=== PATIENT | female | born 1985 | race Caucasian/White ===

== ENCOUNTER 2016-12-21 22:27 | Emergency (ER) | payer OTHER ==
[~2016-12-21] VITALS: Ht 162.6 cm; Wt 97.5 kg
[~2016-12-21 22:27] MED LIST: AMOXICILLIN875 M1 PO; PREDNISONE20 M1 PO; PROAIR HFA8.5 GM INH
[2016-12-21 22:34] VITALS: BP 111/73
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
--- NOTE | 2016-12-21 23:59 | RADIOLOGY REPORT ---
EXAMINATION: 1. Left forearm. 2. Left wrist CLINICAL INFORMATION: Fall. COMPARISON: None TECHNIQUE: 1. Left forearm. 2 views 2. Left wrist. 4 views. FINDINGS: 1. Left forearm. No fracture. Radius and ulna are intact. 2. Left wrist. No fracture. No dislocation. Bone and joint normal. IMPRESSION: 1. Left forearm. Normal. 2. Left wrist. Normal.
[2016-12-22] MEDS ORDERED: CIPROFLOXACIN500 M2 PO (00:04)
[2016-12-22] MEDS ORDERED: PANTOPRAZOLE SO40 M1 PO (00:04)
[2016-12-22] MEDS ORDERED: TRAMADOL HCL50 M1 PO (00:04)
[2016-12-22] MEDS ORDERED: DICLOFENAC SODI75 M2 PO (00:05)
== END 2016-12-22 00:12 ==
LOC: ERH 22:27
DX: S50.12XA Contusion of left forearm, initial encounter (principal); S63.502A Unspecified sprain of left wrist, initial encounter; W10.9XXA Fall (on) (from) unspecified stairs and steps, initial encounter
CPT/HCPCS: 73090-LT; 73110-LT

== ENCOUNTER 2017-06-20 20:09 | Emergency (ER) | payer OTHER ==
[~2017-06-20] VITALS: Ht 162.6 cm; Wt 98.4 kg
[~2017-06-20 20:09] MED LIST changes: +CIPROFLOXACIN500 M2 PO; +DICLOFENAC SODI75 M2 PO; +PANTOPRAZOLE SO40 M1 PO; +TRAMADOL HCL50 M1 PO
[2017-06-20 20:31] VITALS: BP 113/76
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
--- NOTE | 2017-06-20 22:36 | CT SCAN REPORT ---
EXAMINATION: CT HEAD WITHOUT CONTRAST CT FACIAL BONES WITHOUT CONTRAST CLINICAL INFORMATION: Evaluate for mandibular fracture. Right facial pain. COMPARISON: None. TECHNIQUE: Contiguous axial imaging was performed from the skullbase to vertex without intravenous administration of contrast. Multidetector helical imaging performed through the facial bones. Please note that the inferior mental process of the mandible is not included on imaging. DLP: 1236 mGy-cm. FINDINGS: There is no evidence of acute intracranial hemorrhage or territorial infarction. No abnormal mass effect or midline shift is seen. Hand to white matter differentiation is well preserved. No extra-axial fluid collections are identified. The ventricles are normal in size. There is no abnormal attenuation within the brain parenchyma. The osseous structures and soft tissues are normal. The orbits are normal in appearance. The zygomatic arches are normal. The imaged portions of the mandible are atraumatic. The mental process is not fully included on imaging. The TMJs are normal. The mastoid air cells and visualized portions of the paranasal sinuses are well aerated. The maxillofacial soft tissues are unremarkable. IMPRESSION: No acute intracranial pathology. No visible maxillofacial fracture.
[2017-06-20] MEDS ORDERED: OXYCODONE HCL5 M2 PO (22:49)
== END 2017-06-20 22:55 ==
LOC: ERH 20:09
DX: H72.91 Unspecified perforation of tympanic membrane, right ear (principal); S06.0X0A Concussion without loss of consciousness, initial encounter; R68.84 Jaw pain; W50.1XXA Accidental kick by another person, initial encounter; Y92.9 Unspecified place or not applicable; Y93.11 Activity, swimming

== ENCOUNTER 2018-01-01 00:33 | Emergency (ER) | payer OTHER ==
[~2018-01-01] VITALS: Ht 162.6 cm; Wt 101.6 kg
[~2018-01-01 00:33] MED LIST changes: +BUTALB-ACETAMI1 EACH PO; +GABAPENTIN300 M2 PO; +LORAZEPAM0.5 M1 PO; +MECLIZINE HCL25 MG PO; +OXYCODONE HCL5 M2 PO; +SCOPOLAMINE1 EAC1 TP; +TRANSDERM-SCOP1 EACH TOP
--- NOTE | 2018-01-01 00:57 | ED CARDIAC/CP/PALPITATIONS ---
History of Present Illness General Chief Complaint: Chest Pain Stated Complaint: " I HAVE REALLY BAD PAIN AND PRESSURE IN MY CHEST" Source: patient Exam Limitations: no limitations Vital Signs & Intake/Output Vital Signs & Intake/Output Vital Signs Date Time Temp Pulse Resp B/P B/P Pulse O2 O2 Flow FiO2 Mean Ox Delivery Rate 01/01 0320 97.5 92 18 127/79 99 Room Air 01/01 0113 Room Air 01/01 0047 97.4 101 16 133/68 98 Room Air Room Air Allergies Coded Allergies: No Known Allergies (12/21/16) Reconcile Medications Butalb/Acetaminophen/Caffeine (Yidgwr-Lqwayboy-Gzaw 50-325-40) 50 MG-325 MG-40 MG TABLET 1 TAB PO DAILY PRN HEADACHE Gabapentin 300 MG CAPSULE 1 CAP PO TID MS (Reported) Lorazepam 0.5 MG TABLET 1 TAB PO DAILY NEEDED ANXIETY (Reported) Meclizine HCl 25 MG TABLET 1 TAB PO TIDPRN PRN DIZZINESS Pantoprazole Sodium 40 MG TABLET.DR 1 TAB PO DAILY GERD (Reported) Scopolamine 1 MG/3 DAY PATCH.TD.3 1 PATCH TP Q3D PRN DIZZY (Reported) Tramadol HCl 50 MG TABLET 2 TAB PO BIDP PRN PAIN (Reported) Triage Note: 32YO FEMALETO TRIAGE W/CO CHEST PRESSURE THAT HAS BEEN PRESENT AT NIGHT FOR THE LAST 7 NIGHTS. STATES HX OF MS AND TAKES TRAMADOL AND LORAZEPAM Triage Nurses Notes Reviewed? yes Onset: Gradual Duration: week(s):, waxing and waning Timing: recent history Quality/Severity: moderate Location: central Radiation: no radiation Activities at Onset: none Prior Chest Pain/Card Workup: no prior chest pain Modifying Factors: Worsens With: palpation. : No Patient currently breastfeeds: No HPI: 32 yo woman presents with chest pressure x 1 week. She notes that it is worse when she takes a deep breath or presses on her chest. No cough, phlegm, wheeze, dizziness, syncopal symptoms. She is otherwise well. Past History Travel History Traveled to [place] past 21 day No Medical History Any Pertinent Medical History? 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 No Review of Systems Review of Systems Constitutional: Reports: no symptoms. EENTM: Reports: no symptoms. Respiratory: Reports: no symptoms. Cardiovascular: Reports: no symptoms. GI: Reports: no symptoms. Genitourinary: Reports: no symptoms. Musculoskeletal: Reports: no symptoms. Skin: Reports: no symptoms. Neurological/Psychological: Reports: no symptoms. Hematologic/Endocrine: Reports: no symptoms. Immunologic/Allergic: Reports: no symptoms. All Other Systems: Reviewed and Negative Physical Exam Physical Exam General Appearance: well developed/nourished, mild distress Head: atraumatic, normal appearance Eyes: Bilateral: normal appearance. Ears, Nose, Throat: normal pharynx, normal ENT inspection Neck: normal inspection, supple, full range of motion Respiratory: normal breath sounds, no respiratory distress, quiet respiration, lungs clear, parasternal chest wall tenderness Cardiovascular: regular rate/rhythm Gastrointestinal: normal bowel sounds, soft, non-tender, no organomegaly Back: normal inspection Extremities: normal inspection, normal capillary refill, normal range of motion, no edema Neurologic/Psych: no motor/sensory deficits, awake, alert, oriented x 3 Skin: intact, normal color, warm/dry Core Measures ACS in differential dx? No CVA/TIA Diagnosis No Sepsis Present: No Sepsis Focused Exam Completed? No Progress Differential Diagnosis: AMI, costochondritis, musculoskeletal pain, unstable angina Plan of Care: Orders Procedure Date/time Status Add-on Test (ER Only) 01/01 012 Active RAPID VIRAL INFLUENZA A 01/01 012 Complete D-DIMER 01/01 0106 Complete TROPONIN LEVEL 01/01 43 Complete LIPASE 01/01 004 Complete HEPATIC FUNCTION PANEL 01/01 004 Complete HUMAN BETA HCG SCREEN 01/01 43 Complete CBC WITHOUT DIFFERENTIAL 01/01 43 Complete BASIC METABOLIC PANEL 01/01 004 Complete AMYLASE 01/01 004 Complete EKG 01/01 0035 Active Laboratory Tests 01/01/18 0106: Anion Gap 7, Estimated GFR > 60, BUN/Creatinine Ratio 10.0, Glucose 124 H, Calcium 8.8, Total Bilirubin 0.4, Direct Bilirubin 0.3, AST 35, ALT 41, Alkaline Phosphatase 50, Troponin I < 0.01, Total Protein 7.0, Albumin 4.1, Amylase 47, Lipase 73, Total Beta HCG NEGATIVE, D-Dimer High Sensitivty < 200, CBC w Diff NO MAN DIFF REQ, RBC 4.55, MCV 82.0, MCH 28.1, MCHC 34.3, RDW 13.2, MPV 7.6, Gran % 71.6, Lymphocytes % 20.4 L, Monocytes % 6.7, Eosinophils % 1.0, Basophils % 0.3 , Absolute Granulocytes 5.5, Absolute Lymphocytes 1.6, Absolute Monocytes 0.5, Absolute Eosinophils 0.1, Absolute Basophils 0 Microbiology 01/01 0130 NASOPHARYN: Influenza Virus A & B Rapid Smear - COMP Diagnostic Imaging: Viewed by Me: CT Scan. Discussed w/RAD: CT Scan. CXR Impression: PATIENT: ALLIE ELI PRESENT AGE: 32 PATIENT ACCOUNT NO: [id number] : 84 LOCATION: [facility] ORDERING PHYSICIAN: Florian Ford MD SERVICE DATE: 01/01/18 EXAM TYPE: RAD - XRY- PORTABLE CHEST XRAY EXAMINATION: XR PORTABLE CHEST CLINICAL INFORMATION: Chest pain. COMPARISON: Chest x-ray February 29, 2016 TECHNIQUE: Portable frontal view of the chest was obtained. 2:24 AM FINDINGS: No significant abnormality is noted involving the heart, lungs, mediastinum, bony thorax or soft tissues. IMPRESSION : Unremarkable examination. DICTATED BY: Geovanny Sabillon MD DATE/TIME DICTATED:09/08 INFANT CHILDCARE PROVIDER:NURA DATE/TIME TRANSCRIBED:01/01/18300 CONFIDENTIAL, DO NOT COPY WITHOUT APPROPRIATE AUTHORIZATION. <Electronically signed in Other Vendor System> SIGNED BY: Geovanny Sabillon MD 01/01/18304 Initial ED EKG: normal axis, normal intervals, normal p-waves, normal QRS complex, normal sinus rhythm Departure Departure Disposition: HOME OR SELF CARE Condition: Stable Clinical Impression Primary Impression: Chest pain Referrals: Omero Gorman MD (PCP/Family) Departure Forms: Customer Survey General Discharge Information Comments trop negative... labs/ekg benign... pt wishes to go home... she is feeling better after supportive medications.... pt safe for discharge. encouraged close follow up. Critical Care Note Critical Care Note Critical Care Time: non-applicable
[2018-01-01 01:22] LABS: ABSOLUTE BASOPHIL COUNT 0 /CUMM (0.0-0.2); ABSOLUTE EOSINOPHIL COUNT 0.1 /CUMM (0.0-0.7); ABSOLUTE GRANULOCYTE CT 5.5 /CUMM (1.4-6.5); ABSOLUTE LYMPH COUNT 1.6 /CUMM (1.2-3.4); ABSOLUTE MONOCYTE COUNT 0.5 /CUMM (0.10-0.60); BASOPHIL % 0.3 % (0.0-2.0); GRANULOCYTE % 71.6 % (42.2-75.2); HEMATOCRIT 37.3 % (37-47); MEAN CORPUSCULAR HGB 28.1 PG (27.0-31.0); MEAN CORPUSCULAR HGB CONC 34.3 G/DL (33.0-37.0); MEAN PLATELET VOLUME 7.6 FL (7.4-10.4); PLATELET COUNT 252 /CUMM (130-400); RBC DISTRIBUTION WIDTH 13.2 % (11.5-14.5); RED BLOOD CELL CT 4.55 /CUMM (4.20-5.40); WHITE BLOOD CELL COUNT 7.7 /CUMM (4.8-10.8)
--- NOTE | 2018-01-01 03:05 | RADIOLOGY REPORT ---
EXAMINATION: XR PORTABLE CHEST CLINICAL INFORMATION: Chest pain. COMPARISON: Chest x-ray February 29, 2016 TECHNIQUE: Portable frontal view of the chest was obtained. 2:24 AM FINDINGS: No significant abnormality is noted involving the heart, lungs, mediastinum, bony thorax or soft tissues. IMPRESSION: Unremarkable examination.
[2018-01-01 03:20] VITALS: BP 127/79
== END 2018-01-01 03:51 ==
LOC: ERH 00:33
PROVIDERS: Pediatrics
DX: R07.89 Other chest pain (principal)
CPT/HCPCS: 71045; 87804; 87804-59; 93005; 93010; J1885

== ENCOUNTER 2018-01-25 00:07 | Emergency (ER) | payer OTHER ==
[~2018-01-25] VITALS: Ht 162.6 cm; Wt 99.8 kg
[2018-01-25 00:24] VITALS: BP 122/79
[2018-01-25 00:44] LABS: ABSOLUTE BASOPHIL COUNT 0 /CUMM (0.0-0.2); ABSOLUTE EOSINOPHIL COUNT 0.1 /CUMM (0.0-0.7); ABSOLUTE GRANULOCYTE CT 6.6 /CUMM (1.4-6.5); ABSOLUTE LYMPH COUNT 2.5 /CUMM (1.2-3.4); ABSOLUTE MONOCYTE COUNT 0.5 /CUMM (0.10-0.60); BASOPHIL % 0.3 % (0.0-2.0); EOSINOPHIL % 1.4 % (0-5); GRANULOCYTE % 67.8 % (42.2-75.2); HEMATOCRIT 35.5 % (37-47); MEAN CORPUSCULAR HGB 27.8 PG (27.0-31.0); MEAN CORPUSCULAR HGB CONC 34.1 G/DL (33.0-37.0); MEAN CORPUSCULAR VOLUME 81.5 FL (81.0-99.0); MEAN PLATELET VOLUME 7.5 FL (7.4-10.4); PLATELET COUNT 266 /CUMM (130-400); RBC DISTRIBUTION WIDTH 13.1 % (11.5-14.5); RED BLOOD CELL CT 4.36 /CUMM (4.20-5.40); WHITE BLOOD CELL COUNT 9.7 /CUMM (4.8-10.8)
== END 2018-01-25 01:44 | disposition admitted as inpatient to this hospital (09) ==
LOC: ERH 00:07
PROVIDERS: Pediatrics
DX: R07.9 Chest pain, unspecified (principal)
CPT/HCPCS: 93005; 93010; 99281

== ENCOUNTER 2018-02-03 00:28 | Emergency (ER) | payer OTHER | END 2018-02-03 01:59 | disposition admitted as inpatient to this hospital (09) | LOC: ERH 00:28 | DX: R06.00 Dyspnea, unspecified (principal) ==

== ENCOUNTER 2018-02-23 14:36 | Emergency (ER) | payer OTHER ==
[~2018-02-23] VITALS: Ht 162.6 cm; Wt 99.8 kg
[2018-02-23 14:39] VITALS: BP 130/81
--- NOTE | 2018-02-23 15:43 | ED UPPER/LOWER EXTREMITY COMPL ---
History of Present Illness General Chief Complaint: General Adult Stated Complaint: LEFT SHOULDER PAIN AND LEFT SIDE PAIN Source: patient Exam Limitations: no limitations Vital Signs & Intake/Output Vital Signs & Intake/Output Vital Signs Date Time Temp Pulse Resp B/P B/P Pulse O2 O2 Flow FiO2 Mean Ox Delivery Rate 02/23 1439 96.3 85 18 130/81 96 Room Air Room Air Allergies Coded Allergies: No Known Allergies (01/25/18) Reconcile Medications Butalb/Acetaminophen/Caffeine (Oxdqaw-Hogxnner-Ibec 50-325-40) 50 MG-325 MG-40 MG TABLET 1 TAB PO DAILY PRN HEADACHE Gabapentin 300 MG CAPSULE 1 CAP PO TID MS (Reported) Lorazepam 0.5 MG TABLET 1 TAB PO DAILY NEEDED ANXIETY (Reported) Meclizine HCl 25 MG TABLET 1 TAB PO TIDPRN PRN DIZZINESS Pantoprazole Sodium 40 MG TABLET.DR 1 TAB PO DAILY GERD (Reported) Scopolamine 1 MG/3 DAY PATCH.TD.3 1 PATCH TP Q3D PRN DIZZY (Reported) Tramadol HCl 50 MG TABLET 2 TAB PO BIDP PRN PAIN (Reported) Triage Note: PT TO ED WITH C/O LEFT SHOULDER PAIN AND LEFT BACK PAIN, PT DENIES FALL OR HEAVY LIFTING OR INJURY TO THE AREA. DENIES N/V/D OR URINARY DIFFICULTIES. LAST MENSES: 12/24/17 Triage Nurses Notes Reviewed? yes Onset: Gradual Duration: constant Timing: recent history Severity: moderate Severity Numbers: 5 : No Patient currently breastfeeds: No HPI: Patient is a 32-year-old female with past medical history of multiple sclerosis and GERD who presents emergency room with 2 complaints one is patient began complaining of a gradual onset of low-grade persistent left flank and lateral back pain where she denies any trauma or acute onset of pain that began 3 days ago Patient is also complaining of left scapular muscular pain where she denies again any trauma or acute onset of pain patient is right-hand dominant symptoms began yesterday Patient denies any fever chills chest pain arm pain jaw pain nausea vomiting dysuria hematuria vaginal bleeding or discharge. Patient does have a remote history of tubal ligation states her last menstrual cycle was approximately 2 months ago patient is sexually active Patient can tolerate by mouth with no change in symptoms (Christina ELDRIDGE,Ryan) Past History Travel History Traveled to [place] past 21 day No Medical History Any Pertinent Medical History? 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 No (Ryan Lee) Review of Systems Review of Systems Constitutional: Reports: no symptoms. EENTM: Reports: no symptoms. Respiratory: Reports: no symptoms. Cardiovascular: Reports: no symptoms. Gastrointestinal/Abdominal: Reports: see HPI, abdominal pain. Genitourinary: Reports: no symptoms. Musculoskeletal: Reports: see HPI. Skin: Reports: no symptoms. Neurological/Psychological: Reports: no symptoms. Hematologic/Endocrine: Reports: no symptoms. Immunological: Reports: no symptoms. All Other Systems: Reviewed and Negative (Ryan Lee) Physical Exam Physical Exam General Appearance: no apparent distress, alert, comfortable, obese Head: atraumatic Eyes: Bilateral: normal appearance. Ears, Nose, Throat: normal pharynx, normal ENT inspection Neck: normal inspection Cardiovascular/Respiratory: normal breath sounds, regular rate/rhythm Gastrointestinal: MILD LEFT FLANK AND ISCHIAL CREST PAIN UPON PALPATION Back: normal inspection, no vertebral tenderness Neurologic/Tendon: normal sensation, normal motor functions, normal tendon functions Skin: intact, normal color Comments: Nontender abdomen Left shoulder full active range of motion nontender (Ryan Lee) Progress Differential Diagnosis: arterial insufficiency, compartment syndrome, contusion, dislocation, DVT, fracture, gout, septic arthritis, sprain, tendon injury Plan of Care: Orders Procedure Date/time Status HUMAN BETA HCG SCREEN 02/23 1612 Complete URINE 02/23 1555 Complete URINALYSIS 02/23 1555 Complete LIPASE 02/23 155 Complete COMPREHENSIVE METABOLIC PANEL 02/23 1555 Complete CBC WITHOUT DIFFERENTIAL 02/23 155 Complete Laboratory Tests 02/23/18 1612: Anion Gap 9, Estimated GFR > 60, BUN/Creatinine Ratio 12.5, Glucose 96, Calcium 8.7, Total Bilirubin 0.5, AST 53 H, ALT 82 H, Alkaline Phosphatase 53, Total Protein 6.5, Albumin 3.6, Globulin 2.9, Albumin/Globulin Ratio 1.2, Lipase 118, Total Beta HCG NEGATIVE, CBC w Diff NO MAN DIFF REQ, RBC 4.32, MCV 82.3, MCH 27.6, MCHC 33.5, RDW 13.5, MPV 7.4, Gran % 67.3, Lymphocytes % 24.2, Monocytes % 6.3, Eosinophils % 1.9, Basophils % 0.3, Absolute Granulocytes 6.0, Absolute Lymphocytes 2.2, Absolute Monocytes 0.6, Absolute Eosinophils 0.2, Absolute Basophils 0 02/23/18 1603: Urine Color YEL, Urine Clarity CLEAR, Urine pH 7.5, Ur Specific [place] 1.015, Urine Protein NEG, Urine Ketones NEG, Urine Nitrite NEG, Urine Bilirubin NEG, Urine Urobilinogen 0.2, Ur Leukocyte Esterase NEG, Ur Microscopic EXAM NOT REQUIRED, Urine Hemoglobin NEG, Urine Glucose NEG, Urine Test NEGATIVE 02/23/18 1558: Total Beta HCG Cancelled On initial examination patient is resting comfortable at bedside patient has full active range of motion with lumbar spine movements Patient was reevaluated in which she had eloped from the emergency room Please note that this is the third time in the past 30 days that patient has eloped from the emergency room (Ryan Lee) Departure Departure Disposition: HOME OR SELF CARE Condition: Stable Clinical Impression Primary Impression: Flank pain Secondary Impressions: Scapulalgia Referrals: Omero Gorman MD (PCP/Family) Departure Forms: Customer Survey General Discharge Information (Ryan Lee) PA/JUNIOR GRAPHIC DESIGNER Co-Sign Statement Statement: ED Attending supervision documentation- [] I saw and evaluated the patient. I have also reviewed all the pertinent lab results and diagnostic results. I agree with the findings and the plan of care as documented in the PA's/JUNIOR GRAPHIC DESIGNER's documentation. [x] I have reviewed the ED Record and agree with the PA's/JUNIOR GRAPHIC DESIGNER's documentation. [] Additions or exceptions (if any) to the PAs/JUNIOR GRAPHIC DESIGNER's note and plan are summarized below: [] (Wm Richards DO
[2018-02-23 16:25] LABS: ABSOLUTE BASOPHIL COUNT 0 /CUMM (0.0-0.2); ABSOLUTE EOSINOPHIL COUNT 0.2 /CUMM (0.0-0.7); ABSOLUTE LYMPH COUNT 2.2 /CUMM (1.2-3.4); ABSOLUTE MONOCYTE COUNT 0.6 /CUMM (0.10-0.60); BASOPHIL % 0.3 % (0.0-2.0); EOSINOPHIL % 1.9 % (0-5); GRANULOCYTE % 67.3 % (42.2-75.2); HEMATOCRIT 35.6 % (37-47); MEAN CORPUSCULAR HGB 27.6 PG (27.0-31.0); MEAN CORPUSCULAR HGB CONC 33.5 G/DL (33.0-37.0); MEAN CORPUSCULAR VOLUME 82.3 FL (81.0-99.0); MEAN PLATELET VOLUME 7.4 FL (7.4-10.4); PLATELET COUNT 272 /CUMM (130-400); RBC DISTRIBUTION WIDTH 13.5 % (11.5-14.5); RED BLOOD CELL CT 4.32 /CUMM (4.20-5.40); WHITE BLOOD CELL COUNT 8.9 /CUMM (4.8-10.8)
== END 2018-02-23 16:45 ==
LOC: ERH 14:36
PROVIDERS: Physician Assistant
DX: M89.8X1 Other specified disorders of bone, shoulder (principal); R10.32 Left lower quadrant pain
CPT/HCPCS: 81003; 81025

== ENCOUNTER 2018-03-01 21:41 | Emergency (ER) | payer OTHER ==
[~2018-03-01] VITALS: Ht 162.6 cm; Wt 99.8 kg
[2018-03-01 22:10] LABS: ABSOLUTE BASOPHIL COUNT 0.1 /CUMM (0.0-0.2); ABSOLUTE EOSINOPHIL COUNT 0.1 /CUMM (0.0-0.7); ABSOLUTE GRANULOCYTE CT 8.2 /CUMM (1.4-6.5); ABSOLUTE LYMPH COUNT 3.1 /CUMM (1.2-3.4); ABSOLUTE MONOCYTE COUNT 0.6 /CUMM (0.10-0.60); BASOPHIL % 0.5 % (0.0-2.0); EOSINOPHIL % 1.1 % (0-5); GRANULOCYTE % 67.4 % (42.2-75.2); HEMATOCRIT 36.7 % (37-47); MEAN CORPUSCULAR HGB 27.9 PG (27.0-31.0); MEAN CORPUSCULAR HGB CONC 33.9 G/DL (33.0-37.0); MEAN CORPUSCULAR VOLUME 82.3 FL (81.0-99.0); MEAN PLATELET VOLUME 7.4 FL (7.4-10.4); PLATELET COUNT 264 /CUMM (130-400); RBC DISTRIBUTION WIDTH 13.5 % (11.5-14.5); RED BLOOD CELL CT 4.46 /CUMM (4.20-5.40); WHITE BLOOD CELL COUNT 12.2 /CUMM (4.8-10.8)
--- NOTE | 2018-03-02 00:02 | ED GENERAL ADULT ---
History of Present Illness General Chief Complaint: Chest Pain Stated Complaint: SHARP L SIDED CP Source: patient Exam Limitations: no limitations Vital Signs & Intake/Output Vital Signs & Intake/Output Vital Signs Date Time Temp Pulse Resp B/P B/P Pulse O2 O2 Flow FiO2 Mean Ox Delivery Rate 03/02 0026 98.6 84 18 124/73 99 Room Air 03/02 0025 100 Room Air 03/01 2153 98.6 85 20 127/70 98 Room Air ED Intake and Output 03/02 0000 03/01 1200 Intake Total Output Total Balance Patient 220 lb Weight Allergies Coded Allergies: No Known Allergies (03/01/18) Reconcile Medications Butalb/Acetaminophen/Caffeine (Qumraj-Nlztsyzm-Fhwf 50-325-40) 50 MG-325 MG-40 MG TABLET 1 TAB PO DAILY PRN HEADACHE Gabapentin 300 MG CAPSULE 1 CAP PO TID MS (Reported) Ibuprofen 800 MG TABLET 1 TAB PO TID PRN pain Lorazepam 0.5 MG TABLET 1 TAB PO DAILY NEEDED ANXIETY (Reported) Meclizine HCl 25 MG TABLET 1 TAB PO TIDPRN PRN DIZZINESS Pantoprazole Sodium 40 MG TABLET.DR 1 TAB PO DAILY GERD (Reported) Scopolamine 1 MG/3 DAY PATCH.TD.3 1 PATCH TP Q3D PRN DIZZY (Reported) Tramadol HCl 50 MG TABLET 2 TAB PO BIDP PRN PAIN (Reported) Triage Note: PT FROM HOME C/O CHEST PRESSURE PER PT. PT STATES AROUND 2030 SHE HAS HAD A CONSTANT CHEST PRESSURE AND PAIN THAT STARTS IN THE MID STERUM AND RADIATES TO LEFT SHOULDER BLADE. PT DENIES ARM NUMBNESS/TINGLING,JAW OR BACK PAIN, N/V. PT DENIES PAIN BECOMING WORSE UPON MOVEMENT. PT IN NO DISTRESS IN TRIAGE. EKG COMPLETED. 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 yes Onset: Gradual Duration: week(s):, waxing and waning Timing: recent history Injury Environment: home Severity: mild Modifying Factors: Worsens With: other (worse w/palpitation). Associated Symptoms: left sided chest wall tenderness : No Patient currently breastfeeds: No HPI: 32 yo woman h/o MS current smoker, presents with several months of intermittent chest pain. She notes that she has had a recurrence for the past several days. She notes the pain has been intermittent, associated with pressing her chest, not associated with wheezing, phlegm, dyspnea. She is otherwise well. Past History Travel History Traveled to [place] past 21 day No Medical History Any Pertinent Medical History? 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 No Review of Systems Review of Systems Constitutional: Reports: no symptoms. EENTM: Reports: no symptoms. Respiratory: Reports: no symptoms. Cardiovascular: Reports: no symptoms. GI: Reports: no symptoms. Genitourinary: Reports: no symptoms. Musculoskeletal: Reports: no symptoms. Skin: Reports: no symptoms. Neurological/Psychological: Reports: no symptoms. Hematologic/Endocrine: Reports: no symptoms. Immunologic/Allergic: Reports: no symptoms. All Other Systems: Reviewed and Negative Physical Exam Physical Exam General Appearance: well developed/nourished, no apparent distress Head: atraumatic, normal appearance Eyes: Bilateral: normal appearance. Ears, Nose, Throat: normal pharynx, normal ENT inspection Neck: normal inspection, supple, full range of motion Respiratory: normal breath sounds, no respiratory distress, left sided chest wall tenderness to palpation. Cardiovascular: regular rate/rhythm Gastrointestinal: normal bowel sounds, soft, non-tender, no organomegaly Back: normal inspection, normal range of motion Extremities: normal inspection, normal capillary refill, normal range of motion, no edema Neurologic/Psych: no motor/sensory deficits, awake, alert, oriented x 3 Skin: intact, normal color, warm/dry Core Measures ACS in differential dx? No CVA/TIA Diagnosis: No Sepsis Present: No Sepsis Focused Exam Completed? No Progress Differential Diagnoses I considered the following diagnoses in my evaluation of the patient: chest wall pain vs other. Plan of Care: Orders Procedure Date/time Status TROPONIN LEVEL 03/01 2158 Complete HUMAN BETA HCG SCREEN 03/01 2158 Complete D-DIMER 03/01 2158 Complete COMPREHENSIVE METABOLIC PANEL 03/01 2158 Complete CBC WITHOUT DIFFERENTIAL 03/01 2158 Complete EKG 03/01 2142 Active Laboratory Tests 03/01/18 2202: Anion Gap 9, Estimated GFR > 60, BUN/Creatinine Ratio 10.0, Glucose 78, Calcium 8.7, Total Bilirubin 0.4, AST 38 H, ALT 67 H, Alkaline Phosphatase 53, Troponin I < 0.01, Total Protein 6.8, Albumin 3.9, Globulin 2.9, Albumin/ Globulin Ratio 1.3, Total Beta HCG NEGATIVE, D-Dimer High Sensitivty < 200, CBC w Diff NO MAN DIFF REQ, RBC 4.46, MCV 82.3, MCH 27.9, MCHC 33.9, RDW 13.5, MPV 7.4, Gran % 67.4, Lymphocytes % 25.7, Monocytes % 5.3, Eosinophils % 1.1, Basophils % 0.5, Absolute Granulocytes 8.2 H, Absolute Lymphocytes 3.1, Absolute Monocytes 0.6, Absolute Eosinophils 0.1, Absolute Basophils 0.1 Initial ED EKG: nsr, no acute changes Departure Departure Disposition: HOME OR SELF CARE Condition: Stable Clinical Impression Primary Impression: Left-sided chest wall pain Referrals: Omero Gorman MD (PCP/Family) Departure Forms: Customer Survey General Discharge Information Prescriptions: Current Visit Scripts Ibuprofen 1 TAB PO TID PRN pain #30 TAB Comments pt with reproducible chest wall tenderness.... labs benign... she does not wish cxr... prescribed ibuprofen... close follow up advised. Critical Care Note Critical Care Note Critical Care Time: non-applicable
[2018-03-02] MEDS ORDERED: IBUPROFEN800 M1 PO (00:13)
[2018-03-02 00:26] VITALS: BP 124/73
== END 2018-03-02 00:26 ==
LOC: ERH 21:41
PROVIDERS: Physician Assistant Medical
DX: R07.89 Other chest pain (principal)
CPT/HCPCS: 93005; 93010

== ENCOUNTER 2018-03-11 23:17 | Emergency (ER) | payer OTHER ==
[~2018-03-11] VITALS: Ht 162.6 cm; Wt 99.8 kg
[~2018-03-11 23:17] MED LIST changes: +IBUPROFEN800 M1 PO
--- NOTE | 2018-03-11 23:26 | ED GENERAL ADULT ---
History of Present Illness General Chief Complaint: Chest Pain Stated Complaint: BIBA FOR CP/PRESSURE Source: patient Exam Limitations: no limitations Vital Signs & Intake/Output Vital Signs & Intake/Output Vital Signs Date Time Temp Pulse Resp B/P B/P Pulse O2 O2 Flow FiO2 Mean Ox Delivery Rate 03/12 0105 76 18 118/78 100 Room Air 03/11 2337 98.2 80 16 139/80 98 Room Air Room Air ED Intake and Output 03/12 0000 03/11 1200 Intake Total 0 Output Total Balance 0 Intake, Oral 0 Patient 220 lb Weight Allergies Coded Allergies: No Known Allergies (03/11/18) Reconcile Medications Butalb/Acetaminophen/Caffeine (Jtyjvd-Umnheggh-Bkyj 50-325-40) 50 MG-325 MG-40 MG TABLET 1 TAB PO DAILY PRN HEADACHE Gabapentin 300 MG CAPSULE 1 CAP PO TID MS (Reported) Ibuprofen 800 MG TABLET 1 TAB PO TID PRN pain Lorazepam 0.5 MG TABLET 1 TAB PO DAILY NEEDED ANXIETY (Reported) Meclizine HCl 25 MG TABLET 1 TAB PO TIDPRN PRN DIZZINESS Pantoprazole Sodium 40 MG TABLET.DR 1 TAB PO DAILY GERD (Reported) Scopolamine 1 MG/3 DAY PATCH.TD.3 1 PATCH TP Q3D PRN DIZZY (Reported) Tramadol HCl 50 MG TABLET 2 TAB PO BIDP PRN PAIN (Reported) Triage Nurses Notes Reviewed? yes Onset: Abrupt Duration: hour(s): Timing: recent history HPI: 03/12/18 33-year-old female presents to the emergency department with chest heaviness. She says she was at home when she developed chest heaviness. She also admits to difficulty breathing. She says she has a history of MS. She says she frequently gets numbness in both hands. She is not on oral contraceptives. She does smoke. Past History Travel History Traveled to [place] past 21 day No Medical History Any Pertinent Medical History? 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 No Review of Systems Review of Systems Constitutional: Denies: fever. EENTM: Reports: no symptoms. Respiratory: Reports: short of breath. Cardiovascular: Reports: chest pain. GI: Reports: no symptoms. Genitourinary: Reports: no symptoms. Musculoskeletal: Reports: see HPI. Skin: Denies: rash. Neurological/Psychological: Reports: paresthesia. Hematologic/Endocrine: Reports: no symptoms. Physical Exam Physical Exam General Appearance: well developed/nourished, alert, awake, anxious, mild distress Head: atraumatic, normal appearance Eyes: Bilateral: normal appearance, PERRL, EOMI. Ears, Nose, Throat: normal pharynx, normal ENT inspection Neck: normal inspection, supple, full range of motion Respiratory: normal breath sounds, chest non-tender, no respiratory distress Cardiovascular: regular rate/rhythm Peripheral Pulses: 4+ radial (R), 4+ radial (L) Gastrointestinal: non-tender Back: normal range of motion Extremities: normal range of motion Neurologic/Psych: no motor/sensory deficits, awake, alert, oriented x 3 Skin: intact, normal color, warm/dry Core Measures ACS in differential dx? No CVA/TIA Diagnosis: No Sepsis Present: No Sepsis Focused Exam Completed? No Progress Differential Diagnoses I considered the following diagnoses in my evaluation of the patient: [Acute coronary syndrome, pulmonary embolism, costochondritis, asthma, pneumothorax, pneumonia, atelectasis] Plan of Care: Orders Procedure Date/time Status TROPONIN LEVEL 03/12 0300 Complete EKG 03/12 0300 Active TROPONIN LEVEL 03/12 0013 Complete D-DIMER 03/12 0013 Complete COMPREHENSIVE METABOLIC PANEL 03/12 0013 Complete CBC WITHOUT DIFFERENTIAL 03/12 13 Complete EKG 03/11 2318 Active Laboratory Tests 03/12/18 0303: Troponin I < 0.01 03/12/18 0019: Anion Gap 12, Estimated GFR > 60, BUN/Creatinine Ratio 11.3, Glucose 113 H, Calcium 8.5, Total Bilirubin 0.3, AST 20, ALT 45, Alkaline Phosphatase 49, Troponin I < 0.01, Total Protein 6.5, Albumin 3.6, Globulin 2.9, Albumin/ Globulin Ratio 1.2, D-Dimer High Sensitivty < 200, CBC w Diff NO MAN DIFF REQ, RBC 4.23, MCV 81.6, MCH 27.6, MCHC 33.9, RDW 13.3, MPV 7.9, Gran % 67.4, Lymphocytes % 25.4, Monocytes % 5.1, Eosinophils % 1.8, Basophils % 0.3, Absolute Granulocytes 7.3 H, Absolute Lymphocytes 2.8, Absolute Monocytes 0.6, Absolute Eosinophils 0.2, Absolute Basophils 0 Initial ED EKG: NSR Prior EKG: unchanged Repeat EKG: unchanged Departure Departure Disposition: STILL A PATIENT Condition: Stable Clinical Impression Primary Impression: Chest pain Referrals: Omero Gorman MD (PCP/Family) Departure Forms: Customer Survey General Discharge Information Comments PATIENT: ALLIE ELI PRESENT AGE: 33 PATIENT ACCOUNT NO: [id number] : 84 LOCATION: [facility] ORDERING PHYSICIAN: Wm Richards DO SERVICE DATE: 03/12/18 EXAM TYPE: RAD - XRY-PORTABLE CHEST XRAY EXAMINATION: XR PORTABLE CHEST CLINICAL INFORMATION: Shortness of breath. Chest pain. COMPARISON: 01/01/2018 TECHNIQUE: Portable frontal view of the chest was obtained. FINDINGS: Lung volumes are low. Bronchial wall thickening noted. No dense consolidation. No edema or effusion. No pneumothorax. The cardiomediastinal silhouette is within normal limits. No acute osseous abnormality. IMPRESSION: No consolidation. Bronchial wall thickening can be seen with a small airways process such as asthma or atypical/viral infection. DICTATED BY: Jose Hoyt MD DATE/TIME DICTATED:03/12/1832 TEST ENGINEER NUCLEAR EQUIPMENT:NURA DATE/TIME TRANSCRIBED:03/12/1832 CONFIDENTIAL, DO NOT COPY WITHOUT APPROPRIATE AUTHORIZATION. <Electronically signed in Other Vendor System> SIGNED BY: Jose Hoyt MD 03/12 0037 03/12/18 4:01 AM No further chest pain in the emergency department. Serial EKG and troponin negative. Chest x-ray shows evidence of reactive airway disease. D-dimer is negative. Critical Care Note Critical Care Note Critical Care Time: non-applicable
[2018-03-12 00:30] LABS: ABSOLUTE BASOPHIL COUNT 0 /CUMM (0.0-0.2); ABSOLUTE EOSINOPHIL COUNT 0.2 /CUMM (0.0-0.7); ABSOLUTE GRANULOCYTE CT 7.3 /CUMM (1.4-6.5); ABSOLUTE LYMPH COUNT 2.8 /CUMM (1.2-3.4); ABSOLUTE MONOCYTE COUNT 0.6 /CUMM (0.10-0.60); BASOPHIL % 0.3 % (0.0-2.0); EOSINOPHIL % 1.8 % (0-5); GRANULOCYTE % 67.4 % (42.2-75.2); HEMATOCRIT 34.5 % (37-47); MEAN CORPUSCULAR HGB 27.6 PG (27.0-31.0); MEAN CORPUSCULAR HGB CONC 33.9 G/DL (33.0-37.0); MEAN CORPUSCULAR VOLUME 81.6 FL (81.0-99.0); MEAN PLATELET VOLUME 7.9 FL (7.4-10.4); PLATELET COUNT 255 /CUMM (130-400); RBC DISTRIBUTION WIDTH 13.3 % (11.5-14.5); RED BLOOD CELL CT 4.23 /CUMM (4.20-5.40); WHITE BLOOD CELL COUNT 10.8 /CUMM (4.8-10.8)
--- NOTE | 2018-03-12 00:37 | RADIOLOGY REPORT ---
EXAMINATION: XR PORTABLE CHEST CLINICAL INFORMATION: Shortness of breath. Chest pain. COMPARISON: 01/01/2018 TECHNIQUE: Portable frontal view of the chest was obtained. FINDINGS: Lung volumes are low. Bronchial wall thickening noted. No dense consolidation. No edema or effusion. No pneumothorax. The cardiomediastinal silhouette is within normal limits. No acute osseous abnormality. IMPRESSION: No consolidation. Bronchial wall thickening can be seen with a small airways process such as asthma or atypical/viral infection.
[2018-03-12 01:05] VITALS: BP 118/78
== END 2018-03-12 04:15 ==
LOC: ERH 23:17
PROVIDERS: Emergency Medicine
DX: R07.89 Other chest pain (principal)
CPT/HCPCS: 71045; 93005; 93010

== ENCOUNTER 2018-03-21 17:56 | Emergency (ER) | payer OTHER ==
[~2018-03-21] VITALS: Ht 162.6 cm; Wt 102.1 kg
--- NOTE | 2018-03-21 19:29 | ED GI/GU/ABDOMINAL COMPLAINT ---
History of Present Illness General Chief Complaint: Female Urogenital Problems Stated Complaint: WORSENING BLADDER INFECTION SYMPTOMS Source: patient, old records, friend Exam Limitations: no limitations Vital Signs & Intake/Output Vital Signs & Intake/Output Vital Signs Date Time Temp Pulse Resp B/P B/P Pulse O2 O2 Flow FiO2 Mean Ox Delivery Rate 03/21 2054 98.2 80 17 120/62 98 Room Air Room Air 03/21 1809 98.0 77 20 146/83 98 Room Air Allergies Coded Allergies: No Known Allergies (03/11/18) Reconcile Medications Butalb/Acetaminophen/Caffeine (Gwkkft-Llputvat-Crky 50-325-40) 50 MG-325 MG-40 MG TABLET 1 TAB PO DAILY PRN HEADACHE Gabapentin 300 MG CAPSULE 1 CAP PO TID MS (Reported) Ibuprofen 800 MG TABLET 1 TAB PO TID PRN pain Lorazepam 0.5 MG TABLET 1 TAB PO DAILY NEEDED ANXIETY (Reported) Meclizine HCl 25 MG TABLET 1 TAB PO TIDPRN PRN DIZZINESS Pantoprazole Sodium 40 MG TABLET.DR 1 TAB PO DAILY GERD (Reported) Scopolamine 1 MG/3 DAY PATCH.TD.3 1 PATCH TP Q3D PRN DIZZY (Reported) Tramadol HCl 50 MG TABLET 2 TAB PO BIDP PRN PAIN (Reported) Triage Note: PT TO ED C/O WORSENING UTI S/S. FINISHED ABX A FEW DAYS AGO. C/O FOUL SMELLING URINE AND B/L FLANK PAIN. ALSO C/O B/L ANKLES BEING SWOLLEN. Triage Nurses Notes Reviewed? yes ? N Is pt currently ? No HPI: Patient was treated with Macrobid for a UTI by an urgent care. Patient continues to have foul-smelling urine and bilateral flank pain. Patient denies any fevers or chills. There is no nausea or vomiting. She denies any vaginal discharge. She denies dysuria or frequency. She states that her back feels improved. The pain increases with palpation to the area. There is no radiation of the pain. The pain is constant. She rates the pain 4 out of 10. The patient denies any hematuria. Past History Travel History Traveled to [place] past 21 day No Medical History Any Pertinent Medical History? 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 No Review of Systems Review of Systems Constitutional: Reports: no symptoms. EENTM: Reports: no symptoms. Respiratory: Reports: no symptoms. Cardiovascular: Reports: no symptoms. GI: Reports: no symptoms. Genitourinary: Reports: see HPI. Musculoskeletal: Reports: see HPI, back pain. Skin: Reports: no symptoms. Neurological/Psychological: Reports: no symptoms. Hematologic/Endocrine: Reports: no symptoms. Immunologic/Allergic: Reports: no symptoms. All Other Systems: Reviewed and Negative Physical Exam Physical Exam General Appearance: well developed/nourished, alert, awake, mild distress Head: atraumatic, normal appearance Eyes: Bilateral: PERRL, EOMI. Ears, Nose, Throat, Mouth: hearing grossly normal, moist mucous membrane Neck: normal inspection, supple, full range of motion Respiratory: normal breath sounds, chest non-tender, no respiratory distress, lungs clear Cardiovascular: normal peripheral pulses Gastrointestinal: normal bowel sounds, soft, non-tender, no organomegaly Back: normal inspection, normal range of motion Extremities: normal range of motion Neurologic/Psych: no motor/sensory deficits, awake, alert, oriented x 3, normal gait, normal mood/affect Core Measures ACS in differential dx? No Sepsis Present: No Sepsis Focused Exam Completed? No Progress Differential Diagnosis: kidney stone, UTI/pyelo Plan of Care: Orders Procedure Date/time Status COMPREHENSIVE METABOLIC PANEL 03/21 1927 Complete CBC WITHOUT DIFFERENTIAL 03/21 1927 Complete Add-on Test (ER Only) 03/21 184 Active URINE 03/21 1820 Complete URINALYSIS 03/21 1814 Complete Laboratory Tests 03/21/181950: Anion Gap 9, Estimated GFR > 60, BUN/Creatinine Ratio 15.7, Glucose 83, Calcium 9.4, Total Bilirubin 0.4, AST 33, ALT 54 H, Alkaline Phosphatase 51, Total Protein 7.2, Albumin 4.3, Globulin 2.9, Albumin/Globulin Ratio 1.5, CBC w Diff NO MAN DIFF REQ, RBC 4.50, MCV 82.9, MCH 27.8, MCHC 33.5, RDW 13.7, MPV 8.0, Gran % 66.3, Lymphocytes % 26.7, Monocytes % 5.2, Eosinophils % 1.7, Basophils % 0.1, Absolute Granulocytes 6.5, Absolute Lymphocytes 2.6, Absolute Monocytes 0.5 , Absolute Eosinophils 0.2, Absolute Basophils 0 03/21/18 1820: Urine Color YEL, Urine Clarity CLEAR, Urine pH 7.0, Ur Specific [place] 1.020, Urine Protein NEG, Urine Ketones NEG, Urine Nitrite NEG, Urine Bilirubin NEG, Urine Urobilinogen 0.2, Ur Leukocyte Esterase NEG, Ur Microscopic EXAM NOT REQUIRED, Urine Hemoglobin NEG, Urine Glucose NEG, Urine Test NEGATIVE Diagnostic Imaging: Viewed by Me: CT Scan. Discussed w/RAD: CT Scan. Radiology Impression: PATIENT: ALLIE ELI PRESENT AGE: 33 PATIENT ACCOUNT NO: [id number] : 84 LOCATION: [facility] ORDERING PHYSICIAN: Max Raza MD SERVICE DATE: 03/21/18 EXAM TYPE: CAT - CT ABD & PELVIS W/O IV CONTRAS EXAMINATION: CT ABDOMEN AND PELVIS WITHOUT CONTRAST CLINICAL INFORMATION: Bilateral flank pain. COMPARISON: None TECHNIQUE: Multidetector volumetric imaging was performed from the superior aspect of the liver through the pubic symphysis. Sagittal and coronal reformatted images were obtained on the technologist's workstation. DLP: 1073.34 mGy-cm FINDINGS: LUNG BASES: The visualized lung bases are unremarkable. LIVER, GALLBLADDER, AND BILIARY TREE: The liver is normal in size, shape, and attenuation. No focal hepatic lesion or biliary ductal dilatation is present. The gallbladder is unremarkable with no evidence of radiopaque gallstones, gallbladder wall thickening, or obvious pericholecystic inflammatory changes. PANCREAS: Unremarkable. SPLEEN: Unremarkable. ADRENAL GLANDS: Unremarkable. KIDNEYS AND URETERS: The kidneys are normal in size, shape, and attenuation. No hydronephrosis, hydroureter, or calculi seen. No perinephric stranding. BLADDER: Unremarkable. GASTROINTESTINAL TRACT: The small and large bowel are unremarkable. The appendix is unremarkable. ABDOMINAL WALL: No significant hernia is appreciated. LYMPH NODES: Normal. VASCULAR: Unremarkable. PELVIC VISCERA: Uterus is anteverted. There is no adnexal abnormality. OSSEOUS STRUCTURES: Unremarkable. IMPRESSION: No acute abnormality CT scan of the abdomen and pelvis. Normal kidneys, ureter and bladder. Normal appendix. DICTATED BY: Geovanny Sabillon MD DATE/TIME DICTATED:03/21/182115 IC DESIGN ENGINEER :NURA DATE/TIME TRANSCRIBED:03/21/182115 CONFIDENTIAL, DO NOT COPY WITHOUT APPROPRIATE AUTHORIZATION. <Electronically signed in Other Vendor System> SIGNED BY: Geovanny Sabillon MD 03/21/182121 Initial ED EKG: none Comments: Lavish and CAT scan results discussed with the patient and her family and friend. Questions have been answered. Patient will follow up with Dr. GUDINO Departure Departure Disposition: HOME OR SELF CARE Condition: Stable Clinical Impression Primary Impression: Back pain Referrals: Bud BENTON,Anna Gorman MD,Omero (PCP/Family) Additional Instructions: DRINK PLENTY OF FLUIDS FOLLOW UP WITH DR. GUDINO RETURN IF SYMPTOMS WORSEN OR FOR ANY CONCERNS Departure Forms: Customer Survey General Discharge Information
[2018-03-21 20:19] LABS: ABSOLUTE BASOPHIL COUNT 0 /CUMM (0.0-0.2); ABSOLUTE EOSINOPHIL COUNT 0.2 /CUMM (0.0-0.7); ABSOLUTE GRANULOCYTE CT 6.5 /CUMM (1.4-6.5); ABSOLUTE LYMPH COUNT 2.6 /CUMM (1.2-3.4); ABSOLUTE MONOCYTE COUNT 0.5 /CUMM (0.10-0.60); BASOPHIL % 0.1 % (0.0-2.0); EOSINOPHIL % 1.7 % (0-5); GRANULOCYTE % 66.3 % (42.2-75.2); HEMATOCRIT 37.3 % (37-47); MEAN CORPUSCULAR HGB 27.8 PG (27.0-31.0); MEAN CORPUSCULAR HGB CONC 33.5 G/DL (33.0-37.0); MEAN CORPUSCULAR VOLUME 82.9 FL (81.0-99.0); PLATELET COUNT 293 /CUMM (130-400); RBC DISTRIBUTION WIDTH 13.7 % (11.5-14.5); WHITE BLOOD CELL COUNT 9.8 /CUMM (4.8-10.8)
[2018-03-21 20:54] VITALS: BP 120/62
--- NOTE | 2018-03-21 21:22 | CT SCAN REPORT ---
EXAMINATION: CT ABDOMEN AND PELVIS WITHOUT CONTRAST CLINICAL INFORMATION: Bilateral flank pain. COMPARISON: None TECHNIQUE: Multidetector volumetric imaging was performed from the superior aspect of the liver through the pubic symphysis. Sagittal and coronal reformatted images were obtained on the technologist's workstation. DLP: 1073.34 mGy-cm FINDINGS: LUNG BASES: The visualized lung bases are unremarkable. LIVER, GALLBLADDER, AND BILIARY TREE: The liver is normal in size, shape, and attenuation. No focal hepatic lesion or biliary ductal dilatation is present. The gallbladder is unremarkable with no evidence of radiopaque gallstones, gallbladder wall thickening, or obvious pericholecystic inflammatory changes. PANCREAS: Unremarkable. SPLEEN: Unremarkable. ADRENAL GLANDS: Unremarkable. KIDNEYS AND URETERS: The kidneys are normal in size, shape, and attenuation. No hydronephrosis, hydroureter, or calculi seen. No perinephric stranding. BLADDER: Unremarkable. GASTROINTESTINAL TRACT: The small and large bowel are unremarkable. The appendix is unremarkable. ABDOMINAL WALL: No significant hernia is appreciated. LYMPH NODES: Normal. VASCULAR: Unremarkable. PELVIC VISCERA: Uterus is anteverted. There is no adnexal abnormality. OSSEOUS STRUCTURES: Unremarkable. IMPRESSION: No acute abnormality CT scan of the abdomen and pelvis. Normal kidneys, ureter and bladder. Normal appendix.
[2018-06-03] MEDS ORDERED: REGLAN10 M1 PO (03:52)
== END 2018-03-21 23:36 ==
LOC: ERH 17:56
PROVIDERS: Emergency Medicine
DX: M54.5 Low back pain (principal)
CPT/HCPCS: 74176; 81003; 81025

== ENCOUNTER 2018-04-17 19:45 | Emergency (ER) | payer OTHER ==
[~2018-04-17] VITALS: Ht 162.6 cm; Wt 102.1 kg
--- NOTE | 2018-04-17 19:56 | ED CARDIAC/CP/PALPITATIONS ---
History of Present Illness General Chief Complaint: Chest Pain Stated Complaint: CHEST PAIN, SOB Source: patient Exam Limitations: no limitations Vital Signs & Intake/Output Vital Signs & Intake/Output Vital Signs Date Time Temp Pulse Resp B/P B/P Pulse O2 O2 Flow FiO2 Mean Ox Delivery Rate 04/17 1957 97.3 94 20 124/86 99 Room Air Allergies Coded Allergies: No Known Allergies (03/11/18) Reconcile Medications Butalb/Acetaminophen/Caffeine (Maqllf-Wwikbbqg-Zbow 50-325-40) 50 MG-325 MG-40 MG TABLET 1 TAB PO DAILY PRN HEADACHE Gabapentin 300 MG CAPSULE 1 CAP PO TID MS (Reported) Ibuprofen 800 MG TABLET 1 TAB PO TID PRN pain Lorazepam 0.5 MG TABLET 1 TAB PO DAILY NEEDED ANXIETY (Reported) Meclizine HCl 25 MG TABLET 1 TAB PO TIDPRN PRN DIZZINESS Pantoprazole Sodium 40 MG TABLET.DR 1 TAB PO DAILY GERD (Reported) Scopolamine 1 MG/3 DAY PATCH.TD.3 1 PATCH TP Q3D PRN DIZZY (Reported) Tramadol HCl 50 MG TABLET 2 TAB PO BIDP PRN PAIN (Reported) Triage Nurses Notes Reviewed? yes Onset: Gradual HPI: 33 yo woman, current cigarette smoker, in prior good health presents with 1/10 chest discomfort, "like a pressure," worse with palpation and movement, that began earlier today. No dyspnea, wheeze, shortness of breath. She is otherwise well. Past History Medical History Any Pertinent Medical History? 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 No Review of Systems Review of Systems Constitutional: Reports: no symptoms. EENTM: Reports: no symptoms. Respiratory: Reports: no symptoms. Cardiovascular: Reports: no symptoms. GI: Reports: no symptoms. Genitourinary: Reports: no symptoms. Musculoskeletal: Reports: no symptoms. Skin: Reports: no symptoms. Neurological/Psychological: Reports: no symptoms. Hematologic/Endocrine: Reports: no symptoms. Immunologic/Allergic: Reports: no symptoms. All Other Systems: Reviewed and Negative Physical Exam Physical Exam Cardiovascular: regular rate/rhythm Comments: Review of Systems - except as otherwise noted in HPI Review of Systems Constitutional:no symptoms. EENTM:no symptoms. Respiratory:no symptoms. Cardiovascular:no symptoms. GI:no symptoms. Genitourinary:no symptoms. Musculoskeletal:no symptoms. Skin:no symptoms. Neurological/Psychological:no symptoms. Hematologic/Endocrine:no symptoms. Immunologic/Allergic:no symptoms. All Other Systems: Reviewed and Negative Physical Exam Physical Exam General Appearance: well developed/nourished, no apparent distress Head: atraumatic, normal appearance Eyes: Bilateral: normal appearance. Ears, Nose, Throat: normal pharynx, normal ENT inspection Neck: normal inspection, supple, full range of motion Respiratory: normal breath sounds, PARASTERNAL CHEST WALL TENDERNESS TO PALPATION, no respiratory distress, quiet respiration, lungs clear Cardiovascular: regular rate/rhythm Gastrointestinal: normal bowel sounds, soft, non-tender, no organomegaly Back: normal inspection, normal range of motion Extremities: normal inspection, normal capillary refill, normal range of motion, no edema Neurologic/Psych: no motor/sensory deficits, awake, alert, oriented x 3 Skin: intact, normal color, warm/dry Core Measures ACS in differential dx? No CVA/TIA Diagnosis No Sepsis Present: No Sepsis Focused Exam Completed? No Progress Differential Diagnosis: AMI, costochondritis, hyperkalemia, musculoskeletal pain Plan of Care: Orders Procedure Date/time Status TROPONIN LEVEL 04/17 1955 Complete LIPASE 04/17 1955 Complete HEPATIC FUNCTION PANEL 04/17 1955 Complete HUMAN BETA HCG SCREEN 04/17 1955 Complete D-DIMER 04/17 1955 Complete CBC WITHOUT DIFFERENTIAL 04/17 1955 Complete BASIC METABOLIC PANEL 04/17 1955 Complete AMYLASE 04/17 1955 Complete EKG 04/17 1946 Active Laboratory Tests 04/17/18 2015: Anion Gap 10, Estimated GFR > 60, BUN/Creatinine Ratio 8.8, Glucose 107 H, Calcium 8.8, Total Bilirubin 0.4, Direct Bilirubin 0.2, AST 27, ALT 45, Alkaline Phosphatase 57, Troponin I < 0.01, Total Protein 6.7, Albumin 3.8, Amylase 53, Lipase 91, Total Beta HCG NEGATIVE, D-Dimer High Sensitivty < 200, CBC w Diff NO MAN DIFF REQ, RBC 4.52, MCV 82.7, MCH 27.4, MCHC 33.1, RDW 13.6, MPV 7.6, Gran % 73.8, Lymphocytes % 20.7, Monocytes % 4.2, Eosinophils % 1.3, Basophils % 0, Absolute Granulocytes 8.3 H, Absolute Lymphocytes 2.3, Absolute Monocytes 0.5, Absolute Eosinophils 0.1, Absolute Basophils 0 Initial ED EKG: NSR, NO ACUTE CHANGES Departure Departure Disposition: HOME OR SELF CARE Condition: Stable Clinical Impression Primary Impression: Chest pain Referrals: Omero Gorman MD (PCP/Family) Departure Forms: Customer Survey General Discharge Information Comments 04/17/18, 23:42... pt seen upon arrival to ED in triage... pt no longer in waiting room after labs have resulted... unable to discuss results with patient. Critical Care Note Critical Care Note Critical Care Time: non-applicable
[2018-04-17 19:57] VITALS: BP 124/86
[2018-04-17 20:30] LABS: ABSOLUTE BASOPHIL COUNT 0 /CUMM (0.0-0.2); ABSOLUTE EOSINOPHIL COUNT 0.1 /CUMM (0.0-0.7); ABSOLUTE GRANULOCYTE CT 8.3 /CUMM (1.4-6.5); ABSOLUTE LYMPH COUNT 2.3 /CUMM (1.2-3.4); ABSOLUTE MONOCYTE COUNT 0.5 /CUMM (0.10-0.60); BASOPHIL % 0 % (0.0-2.0); EOSINOPHIL % 1.3 % (0-5); GRANULOCYTE % 73.8 % (42.2-75.2); HEMATOCRIT 37.3 % (37-47); MEAN CORPUSCULAR HGB 27.4 PG (27.0-31.0); MEAN CORPUSCULAR HGB CONC 33.1 G/DL (33.0-37.0); MEAN CORPUSCULAR VOLUME 82.7 FL (81.0-99.0); MEAN PLATELET VOLUME 7.6 FL (7.4-10.4); PLATELET COUNT 276 /CUMM (130-400); RBC DISTRIBUTION WIDTH 13.6 % (11.5-14.5); RED BLOOD CELL CT 4.52 /CUMM (4.20-5.40); WHITE BLOOD CELL COUNT 11.2 /CUMM (4.8-10.8)
== END 2018-04-17 22:13 ==
LOC: ERH 19:45
PROVIDERS: Pediatrics
DX: R07.9 Chest pain, unspecified (principal); R06.02 Shortness of breath
CPT/HCPCS: 93005; 93010

== ENCOUNTER 2018-05-16 19:05 | Emergency (ER) | payer OTHER ==
[~2018-05-16] VITALS: Ht 162.6 cm; Wt 102.1 kg
[2018-05-16 19:20] VITALS: BP 133/76
[2018-05-16 19:38] LABS: ABSOLUTE BASOPHIL COUNT 0 /CUMM (0.0-0.2); ABSOLUTE EOSINOPHIL COUNT 0.2 /CUMM (0.0-0.7); ABSOLUTE LYMPH COUNT 2.7 /CUMM (1.2-3.4); ABSOLUTE MONOCYTE COUNT 0.5 /CUMM (0.10-0.60); BASOPHIL % 0.2 % (0.0-2.0); EOSINOPHIL % 1.7 % (0-5); GRANULOCYTE % 70.5 % (42.2-75.2); HEMATOCRIT 37.8 % (37-47); MEAN CORPUSCULAR HGB 27.3 PG (27.0-31.0); MEAN CORPUSCULAR HGB CONC 33.6 G/DL (33.0-37.0); MEAN CORPUSCULAR VOLUME 81.3 FL (81.0-99.0); MEAN PLATELET VOLUME 7.6 FL (7.4-10.4); PLATELET COUNT 286 /CUMM (130-400); RBC DISTRIBUTION WIDTH 13.6 % (11.5-14.5); RED BLOOD CELL CT 4.65 /CUMM (4.20-5.40); WHITE BLOOD CELL COUNT 11.3 /CUMM (4.8-10.8)
== END 2018-05-16 22:00 | disposition admitted as inpatient to this hospital (09) ==
LOC: ERH 19:05
PROVIDERS: Emergency Medicine
DX: R07.9 Chest pain, unspecified (principal); R55 Syncope and collapse
CPT/HCPCS: 93005; 93010; 99281